=== PATIENT | female | born 1980 | race Caucasian/White ===

== ENCOUNTER → 2017-08-18 | Outpatient (CLI) | payer BC ==
[~2017-08-18] MED LIST: LORA-650 PO; MULT-65 PO; VENTAER INH
--- NOTE | 2017-08-19 16:04 | EKG ---
Date Performed: 08/18/2017 Time Performed: 13:27:22 PTAGE: 36 years EKG: Sinus rhythm NORMAL ECG NO PREVIOUS TRACING DOCTOR: Gela Heart Interpretating Date/Time 08/19/2017 16:01:59
== END ==
LOC: CPRE 13:01
PROVIDERS: ATTEND Obstetrics & Gynecology
DX: Z01.810 Encounter for preprocedural cardiovascular examination (principal); N92.0 Excessive and frequent menstruation with regular cycle; N94.6 Dysmenorrhea, unspecified
CPT/HCPCS: 93005

== ENCOUNTER 2017-08-20 10:43 | Observation (INO) | payer BC ==
[~2017-08-20] VITALS: Ht 154.9 cm; Wt 90.1 kg
--- NOTE | 2017-08-20 00:13 | MH ---
cc: Vlad Mora MD DATE OF ADMISSION: 08/20/2017 ADMITTING DIAGNOSIS: Menorrhagia and dysmenorrhea. HISTORY OF PRESENT ILLNESS: The patient is a 36-year-old white female, para 2-0-0-2, with a history of increasing menorrhagia and dysmenorrhea over the last 3-4 years, in some cases bleeding for 3-4 weeks continuous with clots and cramps. Her pelvic ultrasound from 06/25/2017 showed uterine enlargement. The ovaries appeared normal. A simple cyst on the left. Her endometrial biopsy from 07/22/2017 was benign with some polyp fragments. Her Pap smear from 11/28/2016 was normal. Her laboratory studies preop are normal. She is now admitted for surgical treatment. PAST MEDICAL HISTORY: She had 2 C-sections, the last in 2009 and the first in 2006. MEDICATIONS: Vitamins. ALLERGIES: ENVIRONMENTAL. TRANSFUSIONS: None. 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 Alcohol, tobacco and drugs are none. FAMILY HISTORY: Noncontributory. PHYSICAL EXAMINATION: GENERAL: This is a well-nourished, well-developed white female. VITAL SIGNS: Stable. HEENT: Normal. CHEST: Clear. HEART: Regular rate. BREASTS: Symmetrical. ABDOMEN: Benign. PELVIC: Normal external genitalia and BUS. Vagina is normal, cervix normal. Uterus is about 12-week size. Adnexa nonpalpable. ASSESSMENT: As above. PLAN: She is now admitted for laparoscopy with planned LASH and bilateral salpingectomy, possible CARIN, possible BSO. While in the office I explained the procedures, the risks and benefits and complications. The patient elected to proceed. MD MIRNA Jaramillo/ENMANUEL , 11:16 PM , 12:12 AM
[2017-08-20] MEDS ORDERED: METOPROLOL TARTRATE 25 MG TAB PO PRN (11:15)
[2017-08-20] MEDS ORDERED: INSULIN HUMAN REGULAR 1,000 UNITS/10 ML VIAL SQ PRN (11:15)
[2017-08-20] MEDS ORDERED: ACETAMINOPHEN 1000 MG/100 ML 100 ML IV SCH (11:15)
[2017-08-20] MEDS ORDERED: POVIDONE IODINE 5% (ANTISEPSIS KIT) 4 APPLICATIONS EACH NARE PRN (11:15)
[2017-08-20] MEDS ORDERED: CHLORHEXIDINE GLUCONATE 2 % 1 PACK (2 CLOTHS) TOPICAL PRN (11:15)
[2017-08-20] MEDS ORDERED: SODIUM CHLORID 0.9% 500 ML IV PRN (11:15)
[2017-08-20] MEDS ORDERED: LACTATED RINGER'S 1000 ML IV PRN (11:15)
[2017-08-20] MEDS ORDERED: fentaNYL CITRATE 250 MCG/5 ML AMP ONE (11:53)
[2017-08-20] MEDS ORDERED: ROCURONIUM INJ 50 MG/5 ML SYRINGE IV PUSH ONE (12:00)
[2017-08-20] MEDS ORDERED: SODIUM CHLORIDE 0.9% 20 ML VIAL IV ONE (12:00)
[2017-08-20] MEDS ORDERED: LIDOCAINE HCL 1% PF 5 ML SYRINGE OTHER ONE (12:00)
[2017-08-20] MEDS ORDERED: NEOSTIGMINE 5 MG/5 ML SYRINGE IV PUSH ONE (12:00)
[2017-08-20] MEDS ORDERED: KETOROLAC TROMETHAMINE 30 MG/ML (IVP) VIAL IV PUSH ONE (12:00)
[2017-08-20] MEDS ORDERED: DEXAMETHASONE SOD PHOS 4 MG/ML VIAL IV ONE (12:00)
[2017-08-20] MEDS ORDERED: LACTATED RINGER'S 1000 ML INJ 1,000 ML IV ONE (12:00)
[2017-08-20] MEDS ORDERED: GLYCOPYRROLATE 1 MG/5 ML SYRINGE IV PUSH ONE (12:00)
[2017-08-20] MEDS ORDERED: ONDANSETRON HCL 4 MG/2 ML VIAL IV ONE (12:00)
[2017-08-20] MEDS ORDERED: PROPOFOL 200 MG/20 ML AMP IV ONE (12:00)
[2017-08-20] MEDS ORDERED: CLINDAMYCIN PHOS 900 MG/6 ML VIAL ONE (12:26)
[2017-08-20] MEDS ORDERED: BUPIVACAINE LIPOSOME PF 1.3% 20 ML VIAL ONE (12:46)
[2017-08-20] MEDS ORDERED: KETOROLAC TROMETHAMINE 30 MG/ML (IVP) VIAL IVP SCH (14:15)
[2017-08-20] MEDS ORDERED: diphenhydrAMINE HCL 25 MG CAP PO PRN (14:15)
[2017-08-20] MEDS ORDERED: ONDANSETRON ODT 4 MG TAB PO PRN (14:15)
[2017-08-20] MEDS: DOCUSATE SODIUM 100 MG CAP PO SCH (14:15)
[2017-08-20] MEDS ORDERED: PROMETHAZINE INJ 25 MG/ML VIAL IM PRN (14:15)
[2017-08-20] MEDS ORDERED: HYDROmorphone HCL PF 0.5 MG/0.5 ML SYRINGE IV PUSH PRN (14:15)
[2017-08-20] MEDS ORDERED: ACETAMINOPHEN 1000 MG/100 ML VIAL IV SCH (14:15)
[2017-08-20] MEDS ORDERED: D5-1/2 NS + KCL 20 MEQ INJ 1,000 ML IV SCH (14:15)
[2017-08-20] MEDS ORDERED: DO NOT ADM ANY ANTICOAGULANT DRUGS PRN (14:27)
[2017-08-20] MEDS ORDERED: MIDAZOLAM HCL 2 MG/2 ML VIAL ONE (14:37)
--- NOTE | 2017-08-20 14:46 | MP ---
cc: Vlad Mora MD DATE OF OPERATION: 08/20/2017 DATE OF PROCEDURE: 08/20/2017. PREOPERATIVE DIAGNOSES: 1. Menorrhagia. 2. Dysmenorrhea. POSTOPERATIVE DIAGNOSES: 1. Menorrhagia. 2. Dysmenorrhea. PROCEDURES PERFORMED: Laparoscopy, LASH, bilateral salpingectomy. ANESTHESIA: General endotracheal. SURGEON: Vlad Mora MD SPRINKLER REPAIR TECHNICIAN: Jessika Brito. ESTIMATED BLOOD LOSS: 100 mL FLUIDS: 1.1 liter crystalloid. OBJECTIVE FINDINGS: Following induction of adequate general endotracheal anesthesia, the patient was prepped and draped supine on the operating table in dorsal lithotomy position in usual sterile fashion with the bladder being drained by Mayers catheterization. The abdomen was opened through a 3 cm curving infraumbilical incision using a knife to cut down through skin to the fascia. The fascia was opened transversely, stripped from the muscles. The rectus muscle split in the midline. Peritoneum opened sharply without incident. The GelPort was placed. Laparoscope was inserted and the 5 port placed in the left lower quadrant and the AirSeal in the right lower quadrant. Pelvic contents revealed about 12 week size uterus . Normal tubes, normal ovaries, normal cul-de-sac, normal liver edge, normal appendix. Working first on the left, Harmonic scalpel was used to take left mesosalpinx, left round ligament, left broad ligament, left-sided bladder flap and same on the right. Uterine vessel was taken on both sides with Harmonic. Harmonic scalpel now used to amputate the fundus from the cervix, uterus and tubes were placed into the pouch and extracted intact through the GelPort site. Irrigation was performed. Low pressure tests were done in the neutral and Trendelenburg position with no bleeding. Both ureters were inspected for good peristalsis. The operative site was now coated with Evicel. GelPort was now removed and the peritoneum closed with a running stitch of 2-0 Vicryl. The fascia with a running locking stitch of 0 Vicryl corner to midline and tied, subQ with running 3-0 Vicryl and the skin with a running subcuticular 3-0 Monocryl. The scope was now reinserted through the lower port sites, used to inspect the GelPort site which was well closed with no entrapment of tissue. Pelvis inspected. There was no bleeding. Scope was removed, gas was allowed to escape. Small ports were removed and sutured with 3-0 Monocryl subcuticular. Dermabond applied. All counts were correct. The patient's legs were taken down from the stirrups. She was awakened and taken to the recovery room in good condition. MD MIRNA Jaramillo/CHENCHO , 02:14 PM , 02:45 PM MTDD
[2017-08-20] MEDS ORDERED: ALBUTEROL SULFATE 90 MCG/ACT HFA 18 GM INHALER INH PRN (15:15)
[2017-08-20] MEDS ORDERED: LORATADINE 10 MG TAB PO PRN (15:15)
[2017-08-20 16:48] VITALS: BP 118/75; PULSE 98; RESP 18; TEMP 97.7; O2SAT 96
[2017-08-20 19:09] LABS: HEMATOCRIT 43.8 % (35.0-46.0); HEMOGLOBIN 14.3 GM/DL (11.6-15.3)
[2017-08-20 20:37] VITALS: BP 129/84; PULSE 91; RESP 18; TEMP 98.4
[2017-08-20] MEDS ORDERED: ZOLPIDEM TARTRATE 5 MG TAB PO PRN (21:00)
[2017-08-20] MEDS: KETOROLAC TROMETHAMINE 30 MG/ML (IVP) VIAL IVP SCH (21:08)
[2017-08-20] MEDS: ACETAMINOPHEN 1000 MG/100 ML VIAL IV SCH (21:09)
[2017-08-21 00:01] VITALS: BP 113/72; PULSE 69; RESP 18; TEMP 97.2
[2017-08-21] MEDS: DOCUSATE SODIUM 100 MG CAP PO SCH (02:44)
[2017-08-21] MEDS: KETOROLAC TROMETHAMINE 30 MG/ML (IVP) VIAL IVP SCH ×2 (02:45→08:30)
[2017-08-21] MEDS: ACETAMINOPHEN 1000 MG/100 ML VIAL IV SCH (04:00)
[2017-08-21 04:33] VITALS: BP 123/70; PULSE 54; RESP 17; TEMP 98
[2017-08-21 05:55] LABS: AUTOMATED NEUTROPHIL # 11.7 TH/MM3 (1.8-7.7); BASOPHIL % 0.3 % (0.0-2.0); HEMATOCRIT 38.8 % (35.0-46.0); HEMOGLOBIN 12.7 GM/DL (11.6-15.3); LYMPH % 11.9 % (9.0-44.0); LYMPHOCYTE # 1.7 TH/MM3 (1.0-4.8); MEAN CELL VOLUME 82.9 FL (80.0-100.0); MEAN CORPUSCULAR HEMOGLOBIN 27.2 PG (27.0-34.0); MEAN CORPUSCULAR HGB CONC 32.8 % (32.0-36.0); MEAN PLATELET VOLUME 8.3 FL (7.0-11.0); MONOCYTE # 1.2 TH/MM3 (0-0.9); NEUT % 79.8 % (16.0-70.0); PLATELET COUNT 317 TH/MM3 (150-450); RED BLOOD COUNT 4.68 MIL/MM3 (4.00-5.30); RED CELL DISTRIBUTION WIDTH 13.6 % (11.6-17.2); WHITE BLOOD COUNT 14.7 TH/MM3 (4.0-11.0)
[2017-08-21 06:13] LABS: BICARBONATE 25.8 MEQ/L (21.0-32.0); CALCIUM 8.5 MG/DL (8.5-10.1); CREATININE 0.61 MG/DL (0.50-1.00)
[2017-08-21 08:00] VITALS: BP 121/72; PULSE 62; RESP 16; TEMP 97.9; O2SAT 99
--- NOTE | 2017-08-21 08:19 | HHI.DCPOC ---
Discharge Care Plan Report Symptoms to Your Doctor -Temperature above 100.5 degrees -Redness, of incision or excessive or foul smelling drainage -Unusual pain or calf pain -Increased vaginal bleeding -Painful or difficulty urinating -Feelings of extreme sadness or anxiety after 2 weeks Goals to Promote Your Health * To prevent worsening of your condition and complications * To maintain your health at the optimal level Directions to Meet Your Goals Take your medications as prescribed Follow your dietary instruction Follow activity as directed Ensure plenty of rest for recovery Drink fluids for hydration Keep your appointments as scheduled Take your immunizations and boosters as scheduled If your symptoms worsen call your PCP, if no PCP go to Urgent Care Center or Emergency Room Smoking is Dangerous to Your Health. Avoid second hand smoke Call the 24-hour crisis hotline for domestic abuse at Vlad Mora MD August 21, 2017 08:19
== END 2017-08-21 09:50 | disposition home or self-care (01) ==
LOC: HSDC 10:43 → HSDI 14:17 → H1EA 16:44
PROVIDERS: ADMIT Obstetrics & Gynecology; ATTEND Obstetrics & Gynecology
DX: N92.0 Excessive and frequent menstruation with regular cycle (principal); N94.6 Dysmenorrhea, unspecified; N85.2 Hypertrophy of uterus; J45.909 Unspecified asthma, uncomplicated
CPT/HCPCS: 00840; 58542; 64488; 80048; 85014; 85018; 85025; 88307; 96374; 96375; 96376; C9290; G0378; J0131; J1100; J1885; J2250; J2405; J2710; J3010; J3480; J7120